=== PATIENT | male | born 2000 | race African-American/Black ===

== ENCOUNTER 2021-10-08 08:35 | Inpatient (IN) | payer OTHER, SELFPAY ==
[2021-10-08] MEDS ORDERED: Tranexamic Acid 1,000 MG/10 ML VIAL ONE (08:45)
[2021-10-08] MEDS ORDERED: CEFAZOLIN 1 GM VIAL ONE (08:45)
[2021-10-08] MEDS ORDERED: Fentanyl 100 MCG/2 ML VIAL ONE ×4 (08:48→12:18)
[2021-10-08] MEDS ORDERED: Boostrix 0.5 ML (Tdap) VIAL ONE (09:03)
[2021-10-08] MEDS ORDERED: Piperacillin/Tazobactam 4.5 GM VIAL ONE (09:03)
[2021-10-08 09:05] LABS: Prothrombin Time 11.3 sec (9.5-12.1)
[2021-10-08] MEDS ORDERED: Rocuronium Bromide 10 MG/ML (10ML VIAL) ONE (09:06)
[2021-10-08] MEDS ORDERED: Lidocaine 1% PF 5 ML VIAL ONE (09:06)
[2021-10-08] MEDS ORDERED: PROPOFOL 20 ML ONE (09:06)
[2021-10-08 09:13] LABS: ALT (SGPT) 60 U/L (8-55); AST (SGOT) 53 U/L (5-34); Albumin 4.5 g/dL (3.5-5.0); Alkaline Phosphatase 87 U/L (50-130); Anion Gap 18 mmol/L (10-20); BUN (Urea Nitrogen) 11 mg/dL (8.9-20.6); Bilirubin, Total 0.6 mg/dL (0.2-1.2); Calc. Creatinine Clearance 0 mL/min (70-130); Calcium 9.4 mg/dL (7.8-10.44); Carbon Dioxide 20 mmol/L (22-29); Chloride 104 mmol/L (98-107); Estimated GFR 101; Globulin 3.3 g/dL (2.4-3.5); Glucose 116 mg/dL (70-105); Potassium 3.2 mmol/L (3.5-5.1); Protein, Total 7.8 g/dL (6.0-8.3); Sodium 139 mmol/L (136-145)
[2021-10-08 09:15] LABS: #Basophils 0.1 10x3/uL (0.0-0.2); #Eosinphils 0.2 10x3/uL (0.0-0.5); #Monocytes 0.9 10x3/uL (0.0-1.1); #Neutrophils 6.1 10x3/uL (1.5-8.4); %Basophils 0.7 % (0.0-2.0); %Eosinophils 1.4 % (0.0-6.0); %Monocytes 7.5 % (0.0-10.0); %Neutrophils 50.2 % (40.0-75.0); Hemoglobin 15.5 g/dL (13.5-17.5); Mean Corpuscular HGB CONC 31.8 g/dL (32.0-36.0); Mean Corpuscular Hemoglobin 26.4 pg (27.0-33.0); Mean Platelet Volume 11.6 fl (7.4-10.4); Platelet Count 235 10x3/uL (150-450); RBC Distribution Width 13.4 % (11.5-14.5); Red Blood Cell (RBC) Count 5.87 10x6/uL (4.32-5.72); White Blood Cell (WBC) Count 12.1 10x3/uL (3.5-10.5)
[2021-10-08] MEDS ORDERED: Ondansetron PF 4 MG/2 ML Vial ONE (09:23)
[2021-10-08] MEDS ORDERED: Bupivacaine PF 0.5% 30 ML VIAL ONE (09:50)
[2021-10-08] MEDS ORDERED: EPINEPHrine 1 MG/ML AMP ONE (09:50)
[2021-10-08] MEDS ORDERED: Dexamethasone 20 MG/5 ML VIAL ONE (09:59)
[2021-10-08] MEDS ORDERED: Succinylcholine 200 MG/10 ml SYRINGE FS ONE (10:00)
[2021-10-08] MEDS ORDERED: PHENYLEPHRINE-NS 100 MCG/ML 10 ML SYRINGE ONE (10:00)
[2021-10-08] MEDS ORDERED: ePHEDrine Sulfate 50 MG/10 ML VIAL ONE (10:08)
[2021-10-08] MEDS ORDERED: Glycopyrrolate 0.2 MG/ML 5 ML SYRINGE ONE (11:22)
[2021-10-08] MEDS ORDERED: SUGAMMADEX SODIUM 200 MG/2 ML VIAL ONE (11:42)
[2021-10-08] MEDS ORDERED: Dextrose 5% in Water 1,000 ML IV PRN (12:15)
[2021-10-08] MEDS ORDERED: Ondansetron PF 4 MG/2 ML Vial IVP PRN (12:15)
[2021-10-08] MEDS ORDERED: Dextrose 50% Abboject 50 ML SYRINGE SLOW IVP PRN (12:15)
[2021-10-08] MEDS ORDERED: Rib Fracture Protocol IV PRN (12:15)
[2021-10-08] MEDS ORDERED: Piperacillin/Tazobactam 3.375 GM in Sodium Chloride 0.9% 100 ML IVPB SCH (12:30)
[2021-10-08] MEDS ORDERED: Iopamidol 300 61% 100 ML VIAL FS ONE (13:48)
[2021-10-08] MEDS ORDERED: Cyclobenzaprine 10 MG TAB PO PRN ×2 (14:45)
[2021-10-08] MEDS ORDERED: Gabapentin 300 MG CAP PO SCH (15:00)
[2021-10-08] MEDS: Morphine 4 MG/ML VIAL SLOW IVP PRN ×2 (15:47→18:23)
[2021-10-08] MEDS: Sodium Chloride 0.9% 1,000 ML IV SCH ×2 (15:50→22:18)
[2021-10-08] MEDS: Piperacillin/Tazobactam 3.375 GM in Sodium Chloride 0.9% 100 ML IVPB SCH (15:50)
[2021-10-08] MEDS: Gabapentin 100 MG CAP PO SCH ×2 (15:59→21:00)
[2021-10-08] MEDS ORDERED: traMADol HCl 50 MG TAB PO SCH ×2 (18:00)
[2021-10-08] MEDS ORDERED: Acetaminophen 500 MG TAB PO SCH (18:00)
[2021-10-08] MEDS: Acetaminophen 650 MG Suppository PR SCH ×2 (18:23→22:30)
[2021-10-08] MEDS: Ketorolac Tromethamine 30 MG/ML VIAL IVP SCH (18:24)
[2021-10-08] MEDS ORDERED: Ibuprofen 200 MG TAB PO SCH ×2 (22:00)
[2021-10-08] MEDS: Enoxaparin Sodium 40 MG/0.4 ML SYRINGE SC SCH (22:26)
[2021-10-08] MEDS: Famotidine/PF 20 mg/2ml Vial SLOW IVP SCH (22:27)
[2021-10-08] MEDS: Morphine 2 MG/ML VIAL SLOW IVP PRN (22:44)
[2021-10-09] MEDS ORDERED: Chloraseptic Spray 180 ml Bottle PO PRN (00:23)
[2021-10-09] MEDS: Piperacillin/Tazobactam 3.375 GM in Sodium Chloride 0.9% 100 ML IVPB SCH ×3 (01:06→18:43)
[2021-10-09] MEDS: Ketorolac Tromethamine 30 MG/ML VIAL IVP SCH ×4 (01:20→18:41)
[2021-10-09] MEDS: Morphine 2 MG/ML VIAL SLOW IVP PRN ×2 (03:34→07:05)
[2021-10-09 05:04] LABS: #Monocytes 1.2 10x3/uL (0.0-1.1); %Basophils 0.1 % (0.0-2.0); %Lymphocytes 7.6 % (18.0-47.0); %Monocytes 7.7 % (0.0-10.0); %Neutrophils 84.1 % (40.0-75.0); Hemoglobin 11.7 g/dL (13.5-17.5); Mean Corpuscular HGB CONC 33.2 g/dL (32.0-36.0); Mean Corpuscular Hemoglobin 26.7 pg (27.0-33.0); Mean Corpuscular Volume 80.2 fl (81.2-95.1); Mean Platelet Volume 11.3 fl (7.4-10.4); Platelet Count 164 10x3/uL (150-450); RBC Distribution Width 13.6 % (11.5-14.5); Red Blood Cell (RBC) Count 4.39 10x6/uL (4.32-5.72); White Blood Cell (WBC) Count 15.5 10x3/uL (3.5-10.5)
[2021-10-09] MEDS: Acetaminophen 650 MG Suppository PR SCH ×3 (06:49→18:43)
[2021-10-09] MEDS: Sodium Chloride 0.9% 1,000 ML IV SCH ×2 (07:06→20:53)
[2021-10-09] MEDS: Morphine 4 MG/ML VIAL SLOW IVP PRN ×4 (10:59→21:53)
[2021-10-09] MEDS: Famotidine/PF 20 mg/2ml Vial SLOW IVP SCH ×2 (11:00→21:54)
[2021-10-09] MEDS: Gabapentin 100 MG CAP PO SCH ×2 (11:13→18:16)
[2021-10-09] MEDS: 1/2 NS w/KCL 20 mEq 1,000 ML IV SCH (18:43)
[2021-10-09] MEDS: Enoxaparin Sodium 40 MG/0.4 ML SYRINGE SC SCH (21:52)
[2021-10-09 22:36] LABS: SARS-CoV-2 NAA Rapid Test Not Detected (NotDetected)
[2021-10-10] MEDS: Ketorolac Tromethamine 30 MG/ML VIAL IVP SCH ×4 (00:04→19:44)
[2021-10-10] MEDS: Piperacillin/Tazobactam 3.375 GM in Sodium Chloride 0.9% 100 ML IVPB SCH ×3 (00:04→16:04)
[2021-10-10] MEDS: Acetaminophen 650 MG Suppository PR SCH ×4 (00:05→19:05)
[2021-10-10] MEDS: Gabapentin 100 MG CAP PO SCH ×4 (00:07→22:42)
[2021-10-10] MEDS: Morphine 4 MG/ML VIAL SLOW IVP PRN ×3 (02:26→17:17)
[2021-10-10 04:29] LABS: Anion Gap 12 mmol/L (10-20); BUN (Urea Nitrogen) 12 mg/dL (8.9-20.6); Calc. Creatinine Clearance 143 mL/min (70-130); Calcium 8.8 mg/dL (7.8-10.44); Carbon Dioxide 25 mmol/L (22-29); Chloride 103 mmol/L (98-107); Estimated GFR 129; Glucose 103 mg/dL (70-105); Potassium 3.6 mmol/L (3.5-5.1); Sodium 136 mmol/L (136-145)
[2021-10-10 04:40] LABS: #Monocytes 0.7 10x3/uL (0.0-1.1); #Neutrophils 8.8 10x3/uL (1.5-8.4); %Basophils 0.2 % (0.0-2.0); %Eosinophils 0.2 % (0.0-6.0); %Lymphocytes 14.6 % (18.0-47.0); %Monocytes 6.3 % (0.0-10.0); %Neutrophils 78.3 % (40.0-75.0); Hemoglobin 10.4 g/dL (13.5-17.5); Mean Corpuscular HGB CONC 32.7 g/dL (32.0-36.0); Mean Corpuscular Hemoglobin 26.1 pg (27.0-33.0); Mean Corpuscular Volume 79.7 fl (81.2-95.1); Mean Platelet Volume 11.4 fl (7.4-10.4); Platelet Count 134 10x3/uL (150-450); RBC Distribution Width 13.7 % (11.5-14.5); Red Blood Cell (RBC) Count 3.99 10x6/uL (4.32-5.72); White Blood Cell (WBC) Count 11.2 10x3/uL (3.5-10.5)
[2021-10-10] MEDS: 1/2 NS w/KCL 20 mEq 1,000 ML IV SCH ×3 (05:12→19:44)
[2021-10-10] MEDS: Famotidine/PF 20 mg/2ml Vial SLOW IVP SCH ×2 (09:28→22:22)
[2021-10-10] MEDS: Enoxaparin Sodium 40 MG/0.4 ML SYRINGE SC SCH (22:21)
[2021-10-10] MEDS: Morphine 2 MG/ML VIAL SLOW IVP PRN (22:22)
[2021-10-11] MEDS: Piperacillin/Tazobactam 3.375 GM in Sodium Chloride 0.9% 100 ML IVPB SCH ×3 (00:24→18:14)
[2021-10-11] MEDS: Ketorolac Tromethamine 30 MG/ML VIAL IVP SCH ×4 (00:32→18:15)
[2021-10-11] MEDS: Acetaminophen 650 MG Suppository PR SCH ×3 (00:33→12:30)
[2021-10-11] MEDS: Morphine 2 MG/ML VIAL SLOW IVP PRN ×3 (03:36→22:20)
[2021-10-11 04:54] LABS: #Eosinphils 0.1 10x3/uL (0.0-0.5); #Monocytes 0.5 10x3/uL (0.0-1.1); #Neutrophils 6.1 10x3/uL (1.5-8.4); %Basophils 0.3 % (0.0-2.0); %Eosinophils 1.4 % (0.0-6.0); %Lymphocytes 14.8 % (18.0-47.0); %Monocytes 6.3 % (0.0-10.0); %Neutrophils 76.7 % (40.0-75.0); Mean Corpuscular HGB CONC 32.5 g/dL (32.0-36.0); Mean Corpuscular Hemoglobin 26.4 pg (27.0-33.0); Mean Corpuscular Volume 81.3 fl (81.2-95.1); Mean Platelet Volume 11.7 fl (7.4-10.4); Platelet Count 137 10x3/uL (150-450); RBC Distribution Width 13.5 % (11.5-14.5); Red Blood Cell (RBC) Count 3.79 10x6/uL (4.32-5.72); White Blood Cell (WBC) Count 7.9 10x3/uL (3.5-10.5)
[2021-10-11] MEDS: 1/2 NS w/KCL 20 mEq 1,000 ML IV SCH ×3 (05:23→22:00)
[2021-10-11] MEDS: Famotidine/PF 20 mg/2ml Vial SLOW IVP SCH ×2 (09:19→20:48)
[2021-10-11] MEDS: Gabapentin 100 MG CAP PO SCH ×3 (12:04→20:48)
[2021-10-11] MEDS: Acetaminophen 325 MG TAB PO SCH ×2 (14:20→19:18)
[2021-10-11] MEDS: Enoxaparin Sodium 40 MG/0.4 ML SYRINGE SC SCH (20:48)
[2021-10-12] MEDS: Piperacillin/Tazobactam 3.375 GM in Sodium Chloride 0.9% 100 ML IVPB SCH ×3 (00:10→15:33)
[2021-10-12] MEDS: Acetaminophen 325 MG TAB PO SCH ×4 (00:52→19:48)
[2021-10-12] MEDS: Ketorolac Tromethamine 30 MG/ML VIAL IVP SCH ×4 (00:58→17:25)
[2021-10-12] MEDS: 1/2 NS w/KCL 20 mEq 1,000 ML IV SCH ×3 (03:15→17:25)
[2021-10-12] MEDS: Morphine 2 MG/ML VIAL SLOW IVP PRN ×4 (04:30→22:51)
[2021-10-12] MEDS: Famotidine/PF 20 mg/2ml Vial SLOW IVP SCH ×2 (10:19→22:51)
[2021-10-12] MEDS: Gabapentin 100 MG CAP PO SCH ×3 (10:19→22:53)
[2021-10-12] MEDS: Enoxaparin Sodium 40 MG/0.4 ML SYRINGE SC SCH (22:51)
[2021-10-13] MEDS: Ketorolac Tromethamine 30 MG/ML VIAL IVP SCH ×2 (01:20→06:41)
[2021-10-13] MEDS: Piperacillin/Tazobactam 3.375 GM in Sodium Chloride 0.9% 100 ML IVPB SCH ×3 (02:09→16:50)
[2021-10-13] MEDS: Morphine 2 MG/ML VIAL SLOW IVP PRN ×2 (02:10→04:42)
[2021-10-13] MEDS: Acetaminophen 325 MG TAB PO SCH ×4 (03:01→20:57)
[2021-10-13] MEDS: 1/2 NS w/KCL 20 mEq 1,000 ML IV SCH ×3 (03:02→19:28)
[2021-10-13] MEDS: Gabapentin 100 MG CAP PO SCH ×3 (08:47→20:58)
[2021-10-13] MEDS: Famotidine/PF 20 mg/2ml Vial SLOW IVP SCH ×2 (08:47→21:04)
[2021-10-13] MEDS: Enoxaparin Sodium 40 MG/0.4 ML SYRINGE SC SCH (20:57)
[2021-10-13] MEDS: Morphine 4 MG/ML VIAL SLOW IVP PRN (23:46)
[2021-10-14] MEDS: Piperacillin/Tazobactam 3.375 GM in Sodium Chloride 0.9% 100 ML IVPB SCH ×3 (00:34→10:01)
[2021-10-14] MEDS: Acetaminophen 325 MG TAB PO SCH ×2 (00:50→06:52)
[2021-10-14] MEDS: 1/2 NS w/KCL 20 mEq 1,000 ML IV SCH (02:23)
[2021-10-14] MEDS: Morphine 2 MG/ML VIAL SLOW IVP PRN (04:04)
[2021-10-14 04:18] VITALS: BMI 23.5
[2021-10-14] MEDS ORDERED: HYDROcodone/Acetaminophen 5/325 mg Tablet PO PRN ×2 (08:27)
[2021-10-14 08:50] VITALS: BP 114/57; TEMP 98.7
[2021-10-14] MEDS: Gabapentin 100 MG CAP PO SCH (10:02)
[2021-10-14] MEDS: Famotidine/PF 20 mg/2ml Vial SLOW IVP SCH (10:02)
== END 2021-10-14 09:30 | DRG 330 ==
LOC: CSHERS 08:35 → EEVIPCON 14:19 → CSHTELE 14:19
PROVIDERS: ADMIT Surgery; ATTEND Surgery
PROC: 0DTL0ZZ Resection of Transverse Colon, Open Approach (ICD-10-PCS; principal; 2021-10-08)
PROC: 0DTU0ZZ Resection of Omentum, Open Approach (ICD-10-PCS; 2021-10-08)
PROC: 0JDH0ZZ Extraction of Left Lower Arm Subcutaneous Tissue and Fascia, Open Approach (ICD-10-PCS; 2021-10-08)
DX: S36.591A Other injury of transverse colon, initial encounter (principal); S36.118A Other injury of liver, initial encounter; K94.23 Gastrostomy malfunction; I10 Essential (primary) hypertension; Y83.8 Other surgical procedures as the cause of abnormal reaction of the patient, or of later complication, without mention of misadventure at the time of the procedure; Z20.822 Contact with and (suspected) exposure to COVID-19; S52.122A Displaced fracture of head of left radius, initial encounter for closed fracture; X95.9XXA Assault by unspecified firearm discharge, initial encounter; Y92.89 Other specified places as the place of occurrence of the external cause
CPT/HCPCS: 36415; 36430; 71045; 71260; 74177; 80048; 80053; 85025; 85610; 85730; 86850; 86900; 86901; 88307; 90715; 94640; C1765; J0171; J0690; J1100; J1650; J1885; J2270; J2405; J2543; J2704; J3010; J3480; J3490; J7050; J7620; Q9967; S0020; S0028; U0002